=== PATIENT | female | born 2005 | race Asian ===

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

== ENCOUNTER 2025-01-18 13:50 | Outpatient (CLI) | payer BC, SELFPAY | END 2025-01-18 13:51 | disposition home or self-care (01) | LOC: NFLDREF 01-22 13:59 | PROVIDERS: PCP Nurse Practitioner Family; Visit Provider Nurse Practitioner Family | DX: Z00.00 Encounter for general adult medical examination without abnormal findings (principal); Z13.6 Encounter for screening for cardiovascular disorders; Z13.1 Encounter for screening for diabetes mellitus | CPT/HCPCS: 80061; 82947 ==